=== PATIENT | male | born 1975 | race Caucasian/White ===

== ENCOUNTER 2020-11-11 20:26 | Emergency (ER) | payer SELFPAY ==
--- NOTE | 2020-11-11 22:36 | PC.NURSE ---
pt checked in for ankle pain and left several minutes later stating wait is too long
== END 2020-11-11 22:36 | disposition left against medical advice (07) ==
PROVIDERS: Emergency Provider Emergency Medicine
DX: M25.572 Pain in left ankle and joints of left foot (principal)

== ENCOUNTER 2021-03-16 18:42 | Emergency (ER) | payer OTHER, SELFPAY ==
[2021-03-16 19:08] VITALS: BP 131/68; PULSE 68; RESP 18; TEMP 37; O2SAT 98; BMI 38.0
[2021-03-16 20:12] LABS: MANUAL DIFF FLAG NO
[2021-03-16 20:14] LABS: Basophils Absolute Auto 0.1 X10*3/uL (0.0-0.2); Basophils Percent Auto 0.7 % (0-2); Eosinophils Absolute Auto 0.6 X10*3/uL (0.0-0.4); Hematocrit 36.7 % (42-52); Hemoglobin 12.7 g/dl (14.0-18.0); Imm Gran Abs Auto 0.04 X10*3/uL (0.00-0.03); Imm Gran Pct Auto 0.4 % (0.0-0.4); Lymphocytes Absolute Auto 3.2 X10*3/uL (1.2-4.9); Lymphocytes Percent Auto 30.8 % (20-40); Mean Corpuscular HGB Conc 34.6 g/dl (31.0-36.0); Mean Corpuscular Volume 89.5 fL (80-98); Mean Platelet Volume 10.4 fL (9.4-12.4); Monocytes Absolute Auto 0.9 X10*3/uL (0.1-1.2); Monocytes Percent Auto 8.7 % (2-11); Neutrophils Absolute Auto 5.5 X10*3/uL (2.0-8.3); Neutrophils Percent Auto 53.4 % (45-73); Platelet Count 286 X10*3/uL (160-400); Red Cell Distribution Width 12.4 % (11.0-16.0); White Blood Count 10.2 X10*3/uL (4.8-10.8)
[2021-03-16 20:45] LABS: Anion Gap 13 (12-20); Blood Urea Nitrogen 15 mg/dL (9-16); Calcium 8.6 mg/dL (8.4-10.2); Carbon Dioxide 22 mmol/L (22-29); Chloride 106 mmol/L (96-108); Creatinine Clr Calc Pharmacy 132.9; Estimated Glomerular Filt Rate > 60; Glucose Random 201 mg/dL (60-115); Potassium 3.8 mmol/L (3.3-5.1); Sodium 137 mmol/L (135-145)
--- NOTE | 2021-03-16 21:56 | ED_ITS ---
HPI - Nausea/Vomiting/Diarrhea General Chief complaint: Nausea/Vomiting/Diarrhea Stated complaint: diarrhea Time Seen by Provider: 03/16/21 21:53 Source: patient Mode of arrival: ambulatory Limitations: no limitations History of Present Illness HPI Narrative: Patient been feeling congested body aches headache for last 1 week had diarrhea 3 days ago after eating cheese sandwich none now afebrile had low-grade fever at home prior. Feel tired and malaise no nausea no vomiting no significant abdominal pain Related Data Allergies Allergy/AdvReac Type Severity Reaction Status Date / Time acetaminophen [From PERCOCET] Allergy Intermediate SKIN Unverified 07/19/20 19:18 DAMAGING RASH oxycodone [From PERCOCET] Allergy Intermediate SKIN Unverified 07/19/20 19:18 DAMAGING RASH percocet Allergy Unknown Uncoded 06/28/19 00:00 Review of Systems Review of Systems: Constitutional : No Weight loss, + Fever, + Chills ENT/Mouth : No sore throat, + Rhinorrhea Eyes: No Eye Pain, No Swelling Cardiovascular : No Chest Pain, no palpitations Respiratory : No Cough, No Sputum, no shortness of breath Gastrointestinal : no Nausea, No Vomiting, No Diarrhea, No abdominal Pain, no black stools Genitourinary : No Dysuria, No Urinary Frequency Musculoskeletal : No joint pain, No Myalgias, No Joint Swelling Skin : No Skin Lesions, No rash Neuro : +Weakness, No Numbness, No Dizziness, No Headache Psych : No Anxiety/Panic, No Depression Heme/Lymph: No Bruising, No Lymphadenopathy Endocrine : No Polyuria, No Polydipsia All other systems reviewed and are negative PMFSH Social History Social History Advance Directives: No Advance Directives Information Provided: No Physical Exam Vital Signs: Vital Signs: Last Vital Signs Temp 98.6 F 03/16/21 19:08 Pulse 68 03/16/21 19:08 Resp 18 03/16/21 19:08 BP 131/68 03/16/21 19:08 Pulse Ox 98 03/16/21 19:08 Body Mass Index 38.0 Appearance: Alert. Oriented X3. No acute distress. Eyes: PERRLA, No Nystagmus ENT: Pharynx normal. Oral Mucosa moist Neck: Normal inspection. Neck supple. CVS: Normal heart rate and rhythm. Pulses normal. Respiratory: No respiratory distress. Equal air entry bilateral, no wh eezing/rales/rhonchi Abdomen: Soft and nontender. Bowel sounds are present, no mass palpable, no CVA tenderness Skin: Skin warm and dry. Normal skin color. Normal skin turgor. Extremities: No lower extremity edema. No calf tenderness Neuro: Oriented X 3. No motor deficit. No sensory deficit.No cerebellar signs MDM - Nausea/Vomiting/Diarrhea Lab Data Attestation: I reviewed the patient's lab results. Result diagrams: 03/16/21 19:59 03/16/21 19:59 Labs: Lab Results 03/16/21 03/16/21 03/16/21 Range/Units 19:59 19:59 19:59 WBC 10.2 (4.8-10.8) X10*3/uL RBC 4.10 L (4.60-5.80) X10*6/uL Hgb 12.7 L (14.0-18.0) g/dl Hct 36.7 L (42-52) % MCV 89.5 (80-98) fL MCH 31.0 (27.0-33.0) pg MCHC 34.6 (31.0-36.0) g/dl RDW 12.4 (11.0-16.0) % Plt Count 286 (160-400) X10*3/uL MPV 10.4 (9.4-12.4) fL Immature Gran % (Auto) 0.4 (0.0-0.4) % Neut % (Auto) 53.4 (45-73) % Lymph % (Auto) 30.8 (20-40) % [place] % (Auto) 8.7 (2-11) % Eos % (Auto) 6.0 H (0-4) % Baso % (Auto) 0.7 (0-2) % Lymph # (Auto) 3.2 (1.2-4.9) X10*3/uL [place] # (Auto) 0.9 (0.1-1.2) X10*3/uL Eos # (Auto) 0.6 H (0.0-0.4) X10*3/uL Baso # (Auto) 0.1 (0.0-0.2) X10*3/uL Abs Immat Gran (auto) 0.04 H (0.00-0.03) X10*3/uL Absolute Neuts (auto) 5.5 (2.0-8.3) X10*3/uL Absolute Nucleated RBC 0.000 (0.0-0.012) X10*3/uL Nucleated RBC % (auto) 0.0 (0.0-0.2) /100WBC Hold Blue Top SEE NOTE Sodium 137 (135-145) mmol/L Potassium 3.8 (3.3-5.1) mmol/L Chloride 106 (96-108) mmol/L Carbon Dioxide 22 (22-29) mmol/L Anion Gap 13 (12-20) BUN 15 (9-16) mg/dL Creatinine 0.83 (0.5-1.4) mg/dL Estim Creat Clear Calc 132.9 Estimated GFR > 60 Random Glucose 201 H (60-115) mg/dL Calcium 8.6 (8.4-10.2) mg/dL COVID-19 ([facility]) (Negative) COVID-19 Clin Com 03/16/21 Range/Units 22:06 WBC (4.8-10.8) X10*3/uL RBC (4.60-5.80) X10*6/uL Hgb (14.0-18.0) g/dl Hct (42-52) % MCV (80-98) fL MCH (27.0-33.0) pg MCHC (31.0-36.0) g/dl RDW (11.0-16.0) % Plt Count (160-400) X10*3/uL MPV (9.4-12.4) fL Immature Gran % (Auto) (0.0-0.4) % Neut % (Auto) (45-73) % Lymph % (Auto) (20-40) % [place] % (Auto) (2-11) % Eos % (Auto) (0-4) % Baso % (Auto) (0-2) % Lymph # (Auto) (1.2-4.9) X10*3/uL [place] # (Auto) (0.1-1.2) X10*3/uL Eos # (Auto) (0.0-0.4) X10*3/uL Baso # (Auto) (0.0-0.2) X10*3/uL Abs Immat Gran (auto) (0.00-0.03) X10*3/uL Absolute Neuts (auto) (2.0-8.3) X10*3/uL Absolute Nucleated RBC (0.0-0.012) X10*3/uL Nucleated RBC % (auto) (0.0-0.2) /100WBC Hold Blue Top Sodium (135-145) mmol/L Potassium (3.3-5.1) mmol/L Chloride (96-108) mmol/L Carbon Dioxide (22-29) mmol/L Anion Gap (12-20) BUN (9-16) mg/dL Creatinine (0.5-1.4) mg/dL Estim Creat Clear Calc Estimated GFR Random Glucose (60-115) mg/dL Calcium (8.4-10.2) mg/dL COVID-19 ([facility]) Negative (Negative) COVID-19 Clin Com See Note Discharge Plan Discharge Clinical Impression: Gastroenteritis, URI (upper respiratory infection) Patient Disposition: Home, Self-Care Instructions: Upper Respiratory Infection (ED), Gastroenteritis (ED) Additional Instructions: Drink plenty of fluids take Pepto-Bismol for abdominal cramps avoid dairy products Stand Alone Forms: Work/School Release Interventions: ED Discharge Assessment Last Done: 03/16/21 23:22 Discharge Date/Time: 03/16/21 23:22
--- NOTE | 2021-03-16 22:11 | PC.NURSE ---
COVID swab obtained and sent to lab for analysis. Pt is eating snacks from vending machine, reporting diarrhea after eating cheese while lactose intolerant. Will continue to monitor.
[2021-03-16 22:25] LABS: COVID-19 Test Negative (Negative); IDNOW Serial# 9DD0AD1C
== END 2021-03-16 23:22 | disposition home or self-care (01) ==
PROVIDERS: Emergency Provider Internal Medicine
DX: K52.9 Noninfective gastroenteritis and colitis, unspecified (principal); J06.9 Acute upper respiratory infection, unspecified; Z20.822 Contact with and (suspected) exposure to COVID-19
CPT/HCPCS: 36415; 80048; 85025; 87635; 99283

== ENCOUNTER 2021-06-29 05:35 | Emergency (ER) | payer OTHER, SELFPAY ==
--- NOTE | ~2021-06-29 | XR_ITS ---
EXAMINATION: XR ANKLE, RIGHT CLINICAL INFORMATION: Rule out fracture COMPARISON: None TECHNIQUE: AP, lateral, and mortise views of the right ankle. FINDINGS: Osseous alignment is anatomic. No acute fracture is seen. Plantar and posterior calcaneal spurring is noted. There is a pes planus appearance of the visualized foot. There is soft tissue swelling about the ankle, most prominent laterally. XR/XR ankle RT 2V IMPRESSION: Soft tissue swelling at the ankle, with no fracture identified.
--- NOTE | ~2021-06-29 | XR_ITS ---
EXAMINATION: XR SHOULDER, LEFT CLINICAL INFORMATION: Rule out fracture COMPARISON: None TECHNIQUE: Three views of the left shoulder. FINDINGS: Glenohumeral alignment is anatomic. There is suggestion of a subtle nondisplaced fracture at the greater tuberosity of the humerus. The acromioclavicular joint is intact with degenerative change. Chronic appearing deformities of the lateral left sixth and seventh ribs noted. XR/XR shoulder LT min 2V IMPRESSION: Suggestion of a subtle nondisplaced fracture at the greater tuberosity of the humerus.
[2021-06-29 05:53] VITALS: BP 141/77; PULSE 74; RESP 16; TEMP 36.8; O2SAT 95; BMI 37.5
--- NOTE | 2021-06-29 08:07 | ED.EXTPRO ---
HPI - Extremity Problem General Chief complaint: Extremity Problem Stated complaint: right ankle pain Time Seen by Provider: 06/29/21 08:07 Source: patient Mode of arrival: ambulatory Limitations: no limitations History of Present Illness HPI Narrative: This is a 46 years old patient who comes to the emergency department with to complain left shoulder pain which is acute he fell at work today and her right ankle pain which is a chronic problem a x1 year. He states that he fell a year ago injuries ankle since then he has been having intermittent pain in the right ankle with intermittent swelling of the ankle Complaint: extremity pain Onset (ago): month(s) Pain Consistency: constant Location: left, upper extremity and other (also rt ankle pain chronic) Quality: aching Relieving factors: immobilization Exacerbating factors: range of motion Associated symptoms: denies other symptoms Related Data Previous Rx's Medication Instructions Recorded naproxen 500 mg tablet (Naprosyn) 500 mg PO BID #20 tab 06/29/21 Allergies Allergy/AdvReac Type Severity Reaction Status Date / Time acetaminophen [From PERCOCET] Allergy Intermediate SKIN Verified 06/29/21 05:52 DAMAGING RASH oxycodone [From PERCOCET] Allergy Intermediate SKIN Verified 06/29/21 05:52 DAMAGING RASH percocet Allergy Unknown Rash Uncoded 06/29/21 05:52 Review of Systems Review of Systems: Yes all other systems are reviewed and are negative Constitutional: Constitutional: Reports no additional constitutional complaints Eyes: Eyes: Reports no additional eye complaints ENT: Reports system reviewed and no additional complaints, except as documented PMFSH Social History Social History Advance Directives: No Advance Directives Information Provided: No Physical Exam Vital Signs: Vital Signs: Last Vital Signs Temp 98.3 F 06/29/21 05:53 Pulse 74 06/29/21 05:53 Resp 16 06/29/21 05:53 BP 141/77 H 06/29/21 05:53 Pulse Ox 95 06/29/21 05:53 Body Mass Index 37.5 Const: General: cooperative and healthy appearing HENMT: Head: Yes normal to inspection Ears: hearing grossly normal bilaterally General nose exam: Normal external nose present Neck: Neck: Yes normal visual inspection and Yes full ROM Thyroid: Thyroid normal Carotids: normal carotid upstroke Lymphatic: no lymphadenopathy noted Chest: Chest palpation & inspection: normal inspection of the chest Resp: Effort & Inspection: normal respiratory effort Auscultation: clear to auscultation bilaterally Cardio: Jugular venous distension: no JVD Rate: regular rate Rhythm: regular rhythm GI: Inspection: Yes normal to inspection Palpation (GI): Soft to palpation, nontender and no guarding Percussion: Yes normal to percussion : General: Yes no CVA tenderness Back/Spine/Pelvis: Back: no CVA tenderness Cervical Spine: normal cervical lordosis Pelvis: no pain with anterior-posterior compression Extrem: Other: Patient has minimal tenderness in the left anterior shoulder with decreased range of motion Examination the right ankle shows swelling in the ankle mild tenderness in the medial aspect no deformity noted MDM - Extremity (Nontraumatic) Imaging Data shoulder left: Radiologist's impression: XR SHOULDER, LEFT CLINICAL INFORMATION: Rule out fracture? COMPARISON: None? TECHNIQUE: Three views of the left shoulder. FINDINGS: Glenohumeral alignment is anatomic. There is suggestion of a subtle nondisplaced fracture at the greater tuberosity of the humerus. The acromioclavicular joint is intact with degenerative change. Chronic appearing deformities of the lateral left sixth and seventh ribs noted. ? XR/XR shoulder LT min 2V IMPRESSION: Suggestion of a subtle nondisplaced fracture at the greater tuberosity of the humerus. Dictated By: AYANA SHUKLA MD Signed By: <Electronically signed by AYANA SHUKLA MD in OV> 06/29/21 0621 rt ankle: My impression: EXAMINATION: XR ANKLE, RIGHT CLINICAL INFORMATION: Rule out fracture? COMPARISON: None? TECHNIQUE: AP, lateral, and mortise views of the right ankle. FINDINGS: Osseous alignment is anatomic. No acute fracture is seen. Plantar and posterior calcaneal spurring is noted. There is a pes planus appearance of the visualized foot. There is soft tissue swelling about the ankle, most prominent laterally.? XR/XR ankle RT 2V IMPRESSION: Soft tissue swelling at the ankle, with no fracture identified. Dictated By: AYANA SHUKLA MD Signed By: <Electronically signed by AYANA SHUKLA MD in OV> 06/29/2118 DD/ 1 Discharge Plan Discharge Clinical Impression: Greater tuberosity of humerus fracture, Ankle pain, chronic Patient Disposition: Home, Self-Care Instructions: Proximal Humerus Fracture (ED) Additional Instructions: Please call the orthopedist on Thursday Dr Morrison You of a nondisplaced fracture of the left shoulder Prescriptions: New naproxen [Naprosyn] 500 mg tablet 500 mg PO BID Qty: 20 RF: 0 Referrals: Shay Morrison MD [Physician] - 2 days Stand Alone Forms: Work/School Release Discharge Date/Time: 06/29/21 08:30
== END 2021-06-29 08:30 | disposition home or self-care (01) ==
PROVIDERS: Emergency Provider Emergency Medicine
DX: S42.255A Nondisplaced fracture of greater tuberosity of left humerus, initial encounter for closed fracture (principal); W01.0XXA Fall on same level from slipping, tripping and stumbling without subsequent striking against object, initial encounter; G89.29 Other chronic pain; M25.571 Pain in right ankle and joints of right foot; Y93.9 Activity, unspecified; Y92.59 Other trade areas as the place of occurrence of the external cause; Y99.0 Civilian activity done for income or pay
CPT/HCPCS: 73030; 73600; 99282; 99283

== ENCOUNTER 2021-07-07 15:51 | Emergency (ER) | payer OTHER, SELFPAY ==
--- NOTE | ~2021-07-07 | XR_ITS ---
EXAMINATION: CHEST 2 VIEWS CLINICAL INFORMATION: COUGH . COMPARISON: 02/15/2020. TECHNIQUE: PA and lateral views of the chest obtained. FINDINGS: The lungs are well expanded. No focal infiltrate, effusion, edema, or pneumothorax. Cardiac and mediastinal silhouettes are within normal limits for technique. No acute bony abnormality seen with chronic prior left rib fractures noted. XR/XR chest 2V IMPRESSION: No evidence of acute disease
[2021-07-07 16:14] VITALS: BP 123/72; PULSE 62; RESP 18; TEMP 36.5; O2SAT 97; BMI 37.5
[2021-07-07 16:38] LABS: COVID-19 Test Negative (Negative); IDNOW Serial# 9DD0AD1C
--- NOTE | 2021-07-07 16:38 | ED.GENADULT ---
HPI - General Adult General Chief complaint: Upper Respiratory Symptoms Stated complaint: flu like Time Seen by Provider: 07/07/21 16:37 Source: patient Mode of arrival: ambulatory Limitations: no limitations History of Present Illness HPI narrative: 46 y/o male presenting for COVID-19 testing. He reports last week he was feeling ill with intermittent fevers and productive cough. 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 He continues to have some cough with green sputum but it is less than last week. No history of COPD or asthma. He has intermittent SOB when he has coughing fits. No SOLIS or chest pain. MD complaint: cough Onset (ago): week(s) (1) Location: chest Radiation: non-radiation Severity: mild Severity scale (1-10): 4 Quality: aching Pain Consistency: intermittent Relieving factors: rest Exacerbating factors: other (coughing) Associated symptoms: cough and shortness of breath Treatments prior to arrival: none Related Data Previous Rx's Medication Instructions Recorded naproxen 500 mg tablet (Naprosyn) 500 mg PO BID #20 tab 06/29/21 albuterol sulfate 90 mcg/actuation 1 inh INHALATION QID PRN #6.7 g 07/07/21 aerosol inhaler azithromycin 250 mg tablet See Rx Instructions .ROUTE 07/07/21 (Zithromax Z-Alfa) .COMPLEX #6 tab benzonatate 100 mg capsule 100 mg PO TID PRN #10 cap 07/07/21 (Tessalon Perles) prednisone 20 mg tablet 40 mg PO DAILY #10 tab 07/07/21 Allergies Allergy/AdvReac Type Severity Reaction Status Date / Time acetaminophen [From PERCOCET] Allergy Intermediate SKIN Verified 06/29/21 05:52 DAMAGING RASH oxycodone [From PERCOCET] Allergy Intermediate SKIN Verified 06/29/21 05:52 DAMAGING RASH percocet Allergy Unknown Rash Uncoded 06/29/21 05:52 Review of Systems Review of Systems: Constitutional: No Fever, No Chills ENT/Mouth: No sore throat, No Rhinorrhea, No Swallowing Difficulty Cardiovascular: No Chest Pain, + SOB, No Orthopnea, No Edema Respiratory: + Cough, + Sputum, No Wheezing, No dyspnea Gastrointestinal: No Nausea, No Vomiting, No Diarrhea, No abdominal Pain Genitourinary: No Dysuria, No Urinary Frequency, No Hematuria Musculoskeletal: No joint pain, + Myalgias Skin: No Skin Lesions, No rash Neuro: No Weakness, No Numbness, No Dizziness, + Headache Heme/Lymph: No Bruising, No Lymphadenopathy PMFSH Social History Social History Advance Directives: No Advance Directives Information Provided: No Physical Exam Vital Signs: Vital Signs: Last Vital Signs Temp 97.7 F 07/07/21 16:14 Pulse 62 07/07/21 16:14 Resp 18 07/07/21 16:14 BP 123/72 07/07/21 16:14 Pulse Ox 97 07/07/21 16:14 Body Mass Index 37.5 Appearance: Alert. Oriented X3. No acute distress. Eyes: Pupils equal, round and reactive to light. ENT: Pharynx normal. Neck: Normal inspection. Neck supple. CVS: Normal heart rate and rhythm. Pulses normal. Respiratory: No respiratory distress. Scattered rhonchi in right lung hurd, no wheezing, no rales. Left lung clear Skin: Skin warm and dry. Normal skin color. Normal skin turgor. No rashes. Extremities: No lower extremity edema. No calf tenderness Neuro: Oriented X 3. No motor deficit. No sensory deficit. Course Course Course Narrative: 46 y/o male presenting with productive cough x1 week. Fully vaxxed against COVID. COVID swab is negative here. CXR clear. Will treat for acute bronchitis. Stable for d/c home. Medical Decision Making Lab Data Labs: Lab Results 07/07/21 Range/Units 16:17 COVID-19 ([facility]) Negative (Negative) COVID-19 Clin Com See Note Discharge Plan Discharge Clinical Impression: Bronchitis Patient Disposition: Home, Self-Care Instructions: Acute Bronchitis (ED) Additional Instructions: Your COVID-19 test was negative. Your chest x-ray was normal. You are being treated for bronchitis, take all of the prescribed medications as directed. Follow up with your doctor next week. If you develop new or worsening symptoms call 911 or come back to the ER for further evaluation. Prescriptions: New azithromycin [Zithromax Z-Alfa] 250 mg tablet See Rx Instructions .ROUTE .COMPLEX Qty: 6 RF: 0 prednisone 20 mg tablet 40 mg PO DAILY Qty: 10 RF: 0 albuterol sulfate 90 mcg/actuation HFA aerosol inhaler 1 inh inhalation QID PRN (Reason: shortness of breath or wheezing) Qty: 6.7 RF: 0 benzonatate [Tessalon Perles] 100 mg capsule 100 mg PO TID PRN (Reason: cough) Qty: 10 RF: 0 No Action naproxen [Naprosyn] 500 mg tablet 500 mg PO BID Qty: 20 RF: 0 Referrals: Mariana Kelly MD [Physician] - 2 days Interventions: ED Discharge Assessment Last Done: 07/07/21 17:59 Discharge Date/Time: 07/07/21 18:00
== END 2021-07-07 18:00 | disposition home or self-care (01) ==
PROVIDERS: Emergency Provider Internal Medicine
DX: J40 Bronchitis, not specified as acute or chronic (principal); R05 Cough; R06.02 Shortness of breath; Z20.822 Contact with and (suspected) exposure to COVID-19; Z79.899 Other long term (current) drug therapy
CPT/HCPCS: 36415; 71046; 87635; 99283

== ENCOUNTER → 2021-07-23 07:36 | Outpatient (BNVA) | payer OTHER, SELFPAY | PROVIDERS: Visit Provider Physician Assistant ==

== ENCOUNTER → 2021-10-14 09:17 | Outpatient (BNVA) | payer OTHER, SELFPAY | PROVIDERS: PCP Physician Assistant; Visit Provider Physician Assistant ==

== ENCOUNTER 2021-11-23 19:59 | Emergency (ER) | payer OTHER, SELFPAY ==
[2021-11-23 20:43] VITALS: BP 145/70; PULSE 72; RESP 18; TEMP 36.2; O2SAT 98; BMI 36.8
[2021-11-23 21:02] LABS: MANUAL DIFF FLAG NO
[2021-11-23 21:04] LABS: Basophils Absolute Auto 0.1 X10*3/uL (0.0-0.2); Basophils Percent Auto 0.4 % (0-2); Eosinophils Absolute Auto 0.5 X10*3/uL (0.0-0.4); Eosinophils Percent Auto 4.5 % (0-4); Hematocrit 40.2 % (42.0-52.0); Hemoglobin 14.2 g/dl (14.0-18.0); Imm Gran Abs Auto 0.03 X10*3/uL (0.00-0.03); Imm Gran Pct Auto 0.3 % (0.0-0.4); Lymphocytes Absolute Auto 2.5 X10*3/uL (1.2-4.9); Mean Corpuscular HGB Conc 35.3 g/dl (31.0-36.0); Mean Corpuscular Hemoglobin 31.3 pg (27.0-33.0); Mean Corpuscular Volume 88.7 fL (80.0-98.0); Mean Platelet Volume 10.2 fL (9.4-12.4); Monocytes Absolute Auto 1.1 X10*3/uL (0.1-1.2); Monocytes Percent Auto 9.3 % (2-11); Neutrophils Absolute Auto 7.3 x10*3/uL (2.0-8.3); Neutrophils Percent Auto 63.5 % (45-73); Platelet Count 314 X10*3/uL (160-400); Red Blood Count 4.53 X10*6/uL (4.60-5.80); Red Cell Distribution Width 12.2 % (11.0-16.0); White Blood Count 11.4 X10*3/uL (4.8-10.8)
[2021-11-23 21:19] LABS: COVID-19 Test Negative (Negative)
[2021-11-23 21:22] LABS: Anion Gap 12 (12-20); Blood Urea Nitrogen 13 mg/dL (9-16); Calcium 9.2 mg/dL (8.4-10.2); Carbon Dioxide 25 mmol/L (22-29); Chloride 106 mmol/L (96-108); Estimated Glomerular Filt Rate > 60; Glucose Random 196 mg/dL (60-115); Lipase 16 U/L (8-78); Potassium 3.7 mmol/L (3.3-5.1); Sodium 139 mmol/L (135-145)
[2021-11-23 23:18] VITALS: BP 147/95; PULSE 70; RESP 18; O2SAT 97
--- NOTE | 2021-11-23 23:57 | ED.NAVMDI ---
HPI - Nausea/Vomiting/Diarrhea General Chief complaint: Nausea/Vomiting/Diarrhea Stated complaint: diarrhea x1wk and abd pain Time Seen by Provider: 11/23/21 22:33 Source: patient Mode of arrival: ambulatory Limitations: no limitations History of Present Illness HPI Narrative: 46-year-old male who presents emergency department for evaluation of abdominal abdominal pain and diarrhea. Patient states that approximately 9 days prior he ate some shrimp soup. He states that after eating the shrimp soup he developed abdominal pain. Points to his epigastric area when asked to localize the pain. Describes the pain as a intermittent squeezing like sensation he states that several days after eating the soupy then developed vomiting. He states that he vomited 5 times a day for 2 days then the symptoms resolved. He states that 4 days prior to evaluation he developed diarrhea. He states that he has had 3-4 loose brown watery stools per day. He denies any blood in the diarrhea. He states that the pain is 4/10 at its worst. The pain is immediately worse after eating and sometimes is worse when he is hungry as well. The patient took Pepto-Bismol with no relief of his pain. He denied fever, chills, chest pain, shortness of breath, myalgias, arthralgias. Related Data Home Medications Medication Instructions Recorded Confirmed testosterone 20 mg TOPICAL DAILY 10/30/21 10/30/21 Previous Rx's Medication Instructions Recorded albuterol sulfate 90 mcg/actuation 1 inh INHALATION QID PRN #6.7 g 07/07/21 aerosol inhaler aluminum hydrox-magnesium carb 254 10 ml PO QID PRN #355 ml 11/24/21 mg-237.5 mg/5 mL oral suspension (Gaviscon Extra Strength) omeprazole 20 mg capsule,delayed 20 mg PO DAILY 30 Days #30 cap 11/24/21 release Allergies Allergy/AdvReac Type Severity Reaction Status Date / Time acetaminophen [From PERCOCET] Allergy Intermediate SKIN Verified 11/23/21 20:43 DAMAGING RASH oxycodone [From PERCOCET] Allergy Intermediate SKIN Verified 11/23/21 20:43 DAMAGING RASH percocet Allergy Unknown Rash Uncoded 11/23/21 20:43 Review of Systems Review of Systems: Yes all other systems are reviewed and are negative PMFSH Past Medical History COUNTS INCLUDE 234 BEDS AT THE [facility] Narrative: Social history: He denies tobacco use. He occasionally drinks alcohol. He states that he vapes marijuana 2 times a week. Medical History Depression Low testosterone in male Social History Social History Housing: House Patient Tobacco Use Status: Never used Tobacco Tobacco use type: Cigarette e-Cigarette/Vaping Use: Never Used Second Hand Smoke Exposure: No Advance Directives: No Advance Directives Information Provided: No Current occupational status: employed Current occupation: [employer] - [employer] Physical Exam Vital Signs: Vital Signs: Last Vital Signs Temp 97.1 F 11/23/21 20:43 Pulse 70 11/23/21 23:18 Resp 18 11/23/21 23:18 BP 147/95 H 11/23/21 23:18 Pulse Ox 97 11/23/21 23:18 BMI result Body Mass Index 36.8 Const: General: cooperative and no acute distress Orientation/consciousness: oriented to person and oriented to place Limitations: no limitations HENMT: Head: Yes normal to inspection, Yes normocephalic and Yes atraumatic Ears: external ears normal General nose exam: Normal external nose present Face and sinus: Yes normal facial exam Mouth: Normal oral and palatal mucosa present Throat: Yes posterior oropharynx normal Eyes: General: appearance normal, both eyes and all related structures Pupils: Equal, round and reactive pupils present Neck: Neck: Yes normal visual inspection, Yes no lymphadenopathy, Yes trachea midline and Yes supple Chest: Chest palpation & inspection: normal inspection of the chest and normal palpation of entire chest wall Resp: Effort & Inspection: normal respiratory effort and able to speak in complete sentences Auscultation: clear to auscultation bilaterally Cardio: Rate: regular rate Rhythm: regular rhythm Heart sounds: S1 normal heart sound present, S2 normal heart sound present and no murmurs GI: Inspection: Yes normal to inspection Palpation (GI): Soft to palpation, Tenderness to palpation present (GI) in the epigastrum (Moderate) and no guarding Auscultation: normal bowel sounds : General: Yes no CVA tenderness Back/Spine/Pelvis: Back: no CVA tenderness Skin: General skin exam: no rashes or lesions noted Neuro: General: oriented to person and oriented to place Cranial nerves: Yes CN's II-XII intact bilaterally and Yes Equal, round and reactive pupils present Cognition (Neuro): normal cognition Motor exam (neuro): 5/5 motor strength present throughout Extrem: General: Yes normal to inspection Psych: Appearance: grossly normal Speech and movement: Normal speech and movement present Affect: normal affect Attitude: cooperative Thought process: Normal thought process present Thought content: Normal thought content present Course Course Course Narrative: 46-year-old male who presents emergency department for evaluation intermittent epigastric abdominal pain for 9 days after eating shrimp soup. He states that he did have 2 days of vomiting which resolved. Over the past 4 days he has had loose brown watery diarrheal stools. He denied fever, chills, myalgias arthralgias. Vital signs revealed elevated blood pressures of 145/70, otherwise unremarkable. Examination did reveal epigastric tenderness. This time I suspect the patient has acute gastritis. Patient was started on omeprazole and extra-strength Gaviscon. He was given printed and verbal instructions and discharged home. MDM - Nausea/Vomiting/Diarrhea Lab Data Result diagrams: 11/23/21 20:55 11/23/21 20:55 Labs: Lab Results 11/23/21 11/23/21 11/23/21 Range/Units 20:53 20:55 20:55 WBC 11.4 H (4.8-10.8) X10*3/uL RBC 4.53 L (4.60-5.80) X10*6/uL Hgb 14.2 (14.0-18.0) g/dl Hct 40.2 L (42.0-52.0) % MCV 88.7 (80.0-98.0) fL MCH 31.3 (27.0-33.0) pg MCHC 35.3 (31.0-36.0) g/dl RDW 12.2 (11.0-16.0) % Plt Count 314 (160-400) X10*3/uL MPV 10.2 (9.4-12.4) fL Immature Gran % (Auto) 0.3 (0.0-0.4) % Neut % (Auto) 63.5 (45-73) % Lymph % (Auto) 22.0 (20-40) % Pacific % (Auto) 9.3 (2-11) % Eos % (Auto) 4.5 H (0-4) % Baso % (Auto) 0.4 (0-2) % Lymph # (Auto) 2.5 (1.2-4.9) X10*3/uL Pacific # (Auto) 1.1 (0.1-1.2) X10*3/uL Eos # (Auto) 0.5 H (0.0-0.4) X10*3/uL Baso # (Auto) 0.1 (0.0-0.2) X10*3/uL Abs Immat Gran (auto) 0.03 (0.00-0.03) X10*3/uL Absolute Neuts (auto) 7.3 (2.0-8.3) x10*3/uL Absolute Nucleated RBC 0.000 (0.0-0.012) X10*3/uL Nucleated RBC % (auto) 0.0 (0.0-0.2) /100WBC Sodium 139 (135-145) mmol/L Potassium 3.7 (3.3-5.1) mmol/L Chloride 106 (96-108) mmol/L Carbon Dioxide 25 (22-29) mmol/L Anion Gap 12 (12-20) BUN 13 (9-16) mg/dL Creatinine 0.88 (0.5-1.4) mg/dL Estim Creat Clear Calc 122.0 Estimated GFR > 60 Random Glucose 196 H (60-115) mg/dL Calcium 9.2 D (8.4-10.2) mg/dL Lipase 16 (8-78) U/L COVID-19 ([facility]) Negative (Negative) COVID-19 Clin Com See Note Discharge Plan Discharge Clinical Impression: Gastritis, Diarrhea Patient Disposition: Home, Self-Care Instructions: Gastritis (ED) Additional Instructions: Your COVID-19 test was negative. Your laboratory evaluation was unremarkable. Your symptoms are consistent with inflammation of your stomach from too much acid (gastritis). Prilosec is a medicine that shuts off your acid production a larger stomach heal. Take Prilosec (omeprazole) 20 mg pills, 1 pill daily for 1 month. Also take extra-strength Gaviscon 5 mL 4 times a day for 1 week. This is an antacid that should help with your pain. Follow-up with your doctor in 2 days. Please return to the emergency department if your symptoms get worse or if you develop any symptoms that are concerning to you. Prescriptions: New omeprazole 20 mg capsule,delayed release(DR/EC) 20 mg PO DAILY 30 Days Qty: 30 RF: 0 Gaviscon Extra Strength 254-237.5 mg/5 mL suspension 10 ml PO QID PRN (Reason: dyspepsia) Qty: 355 RF: 0 No Action albuterol sulfate 90 mcg/actuation HFA aerosol inhaler 1 inh inhalation QID PRN (Reason: shortness of breath or wheezing) Qty: 6.7 RF: 0 testosterone 10 mg/0.5 gram /actuation gel in metered-dose pump 20 mg topical DAILY RF: 0 Stand Alone Forms: Work/School Release
--- NOTE | 2021-11-24 00:33 | PC.NURSE ---
Reviewed discharge instruction with pt. pt verbalized understanding.
== END 2021-11-24 00:33 | disposition home or self-care (01) ==
PROVIDERS: Emergency Provider Emergency Medicine Emergency Medical Services; PCP Internal Medicine
DX: K29.70 Gastritis, unspecified, without bleeding (principal); R10.9 Unspecified abdominal pain; R19.7 Diarrhea, unspecified; Z20.822 Contact with and (suspected) exposure to COVID-19
CPT/HCPCS: 36415; 80048; 83690; 85025; 87635; 99283; 99284

== ENCOUNTER 2022-01-08 15:00 | Outpatient (RCR) | payer OTHER, SELFPAY ==
--- NOTE | 2021-10-23 12:11 | MHC.PT.EP ---
[facility] [place] Office [place] [facility] [place] [facility] [address] Aarti Winston [address] [phone] F: [phone] F: [phone] F: [phone] F: [phone] Physical Therapy Plan of Care Date of Evaluation: Date of Surgery: N/A Diagnosis: plantar fascial fibramatosis; facscitis of R foot Assessment: pt's signs and symptoms consistent w/ lateral ankle sprain, plantar fasciitis, and increased sensitization of R foot and ankle complex. pt appears to be progressing towards developing CRPS. Will continue to monitor and treat or refer as needed. pt presents to physical therapy with pain, decreased range of motion, decreased strength, impaired functional mobility, impaired postural awareness, and gait deviations. pt is a fair candidate for skilled PT due to age, potential remediation of impairments, typical disease/condition progression and prognosis, comorbidities, and motivation. pt would benefit from tailored strengthening and stretching exercise program, functional training, gait training, postural re-training, neuromuscular re-education, modalities as needed for pain, equipment safety demonstration. Frequency and Duration: The patient will be seen 2x/wk for 8 wks Short Term Goals: pt will be I w/ HEP to promote self-management of condition. pt will improve R ankle DF to 10 degrees to remediate gait impairments on even ground w/ LRAD. pt will demo proper cane placement and sequencing w/ gait on even ground to reduce fall risk and normalize gait pattern. Assisted Goals: pt will improve R ankle PF strength to 5/5 to promote improved toe off and push off during terminal stance phase during gait on even ground w/ LRAD. pt will report a statistically significant improvement in self-reported outcome measure, LEFI, to promote return to PLOF. Treatment Plan: Modalities to reduce pain, spasms and effusion. Manual therapy to restore motion and function. Therapeutic exercise to improve strength and flexibility. Neuromuscular re-education for posture and balance. Therapeutic activities to return to functional activities of daily living. Electronically signed by: Angie Rangel PT, DPT Please sign and return to therapist. Thank you for your referral.
--- NOTE | 2022-01-09 15:11 | MHC.PT.DC ---
[facility] [place] [facility] [place] [facility] [place] [facility] [address] Aarti Winston [address] [phone] F: [phone] F: [phone] F: [phone] F: [phone] Physical Therapy Discharge Report Diagnosis: plantar fascial fibramatosis; facscitis of R foot Date of Surgery: N/A Date of Evaluation: 10/23/21 Date of Discharge: 01/09/22 Treatments to Date: 8 Cancellations to Date: 8 No Shows to Date: 3 Discharge Status: Achieved Goals Improved Function Independent with HEP Discharge Summary: The patient overall reported an improvement of his foot and ankle pain despite fair-poor attendance and compliance with recommendations. He does have persistent Achilles tendon, plantar fascia, and anterior talocrural pain. He tended to perseverate on his symptoms despite frequent education on how his foot posture and gait mechanics were causing his pain syndromes. He was also educated on the importance of seeing a hot room attendant for appropriate shoe inserts as he has been buying OTC inserts with no symptom relief. He was instructed on proper heel-toe gait pattern with neutral rotation and sit to stand transfers with equal weightbearing. He was given a home exercise program including a lower extremity strengthening, core stability, foot and ankle stretches, and foot intrinsic exercises. He has achieved all goals established at the initial evaluation. Electronically signed by: Angie Rangel PT, DPT Please sign and return to therapist. Thank you for your referral.
== END 2022-01-09 15:12 | disposition home or self-care (01) ==
LOC: HO.PT 15:00
PROVIDERS: PCP Internal Medicine; Visit Provider Physician Assistant
DX: M72.2 Plantar fascial fibromatosis (principal)
CPT/HCPCS: 97014; 97110; 97112; 97140; 97161